=== PATIENT | male | born 1990 | race Caucasian/White ===

== ENCOUNTER 2016-10-05 17:21 | Emergency (ER) | payer SELFPAY ==
[~2016-10-05] VITALS: Ht 198.1 cm; Wt 129.3 kg
[~2016-10-05 17:21] MED LIST: ALBUTEROL0.09 MG/A2 IH; AMOXICILLIN500 M2 PO; AMOXIL500 MG PO; ATARAX,VISTARIL50 MG PO; BACTRIM DS 8001 TA1 PO; BENADRYL ALLERG25 M5 PO; CLARITIN10 MG PO; CLEOCIN150 MG PO; CLINDAMYCIN HC300 MG PO; CLINDAMYCIN150 MG PO; EES400 MG PO; HYDROCODONE BIT1 T11 PO; IBU800 MG PO; LOTRIMIN1% TP; MEDROL DOSEPAK4 MG PO; MOTRIN800 MG PO; Motrin,Rufen800 MG PO; NKHM; NORCO 10-325 T1 EACH PO; NORCO 5-325 TA1 EACH PO; NYSTATIN CREAM15 GM T; PENICILLIN VK500 MG PO; PENICILLIN-VK500 M1 PO; PHENERGAN25 M3 PO; PREDNISONE10 MG PO; Peridex 473 ML473 ML PO; TRAMADOL HCL50 MG PO; ULTRAM50 MG PO; VIBRAMYCIN100 MG PO; VISTARIL50 MG PO; VOLTAREN50 M1 PO; ZITHROMAX Z PA250 MG PO
[2016-10-05 17:25] VITALS: BP 133/69
== END 2016-10-05 17:50 | disposition home or self-care (01) ==
LOC: ED 17:21
DX: Z20.2 Contact with and (suspected) exposure to infections with a predominantly sexual mode of transmission (principal); R21 Rash and other nonspecific skin eruption; F17.200 Nicotine dependence, unspecified, uncomplicated; Z98.890 Other specified postprocedural states

== ENCOUNTER 2018-07-02 14:07 | Emergency (ER) | payer BC ==
[2018-07-02 14:08] VITALS: BP 134/71
[2018-07-02] MEDS ORDERED: AVPAK AZITHROM250 MG PO (15:57)
[2018-07-02] MEDS ORDERED: PREDNISONE50 MG PO (15:57)
[2018-07-02] MEDS ORDERED: PROAIR HFA8.5 GM INH (15:57)
== END 2018-07-02 16:01 | disposition home or self-care (01) ==
LOC: ED 14:07
DX: J20.9 Acute bronchitis, unspecified (principal); M25.562 Pain in left knee; W10.8XXA Fall (on) (from) other stairs and steps, initial encounter; Y93.89 Activity, other specified; Y92.89 Other specified places as the place of occurrence of the external cause; Y99.8 Other external cause status

== ENCOUNTER 2018-11-23 19:37 | Emergency (ER) | payer BC ==
[~2018-11-23] VITALS: Ht 198.1 cm; Wt 140.6 kg
[~2018-11-23 19:37] MED LIST changes: +AVPAK AZITHROM250 MG PO; +PREDNISONE50 MG PO; +PROAIR HFA8.5 GM INH
[2018-11-23 19:38] VITALS: BP 122/72
== END 2018-11-23 20:14 | disposition home or self-care (01) ==
LOC: ED 19:37
DX: S05.01XA Injury of conjunctiva and corneal abrasion without foreign body, right eye, initial encounter (principal); W50.0XXA Accidental hit or strike by another person, initial encounter; Y93.89 Activity, other specified; Y92.89 Other specified places as the place of occurrence of the external cause; Y99.8 Other external cause status

== ENCOUNTER 2019-08-07 21:41 | Emergency (ER) | payer SELFPAY ==
[~2019-08-07] VITALS: Ht 198.1 cm; Wt 131.5 kg
[2019-08-07 22:00] VITALS: BP 136/68
== END 2019-08-08 00:16 | disposition home or self-care (01) ==
LOC: ED 21:41
DX: S93.402A Sprain of unspecified ligament of left ankle, initial encounter (principal); W20.8XXA Other cause of strike by thrown, projected or falling object, initial encounter; Y93.89 Activity, other specified; Y92.89 Other specified places as the place of occurrence of the external cause; Y99.8 Other external cause status

== ENCOUNTER → 2021-03-24 | Outpatient (CLI) | payer OTHER | END | disposition home or self-care (01) | LOC: COVID19 18:28 | PROVIDERS: ATTEND Family Medicine | DX: U07.1 COVID-19 (principal) ==

== ENCOUNTER 2021-04-21 17:20 | Emergency (ER) | payer OTHER ==
[~2021-04-21] VITALS: Ht 198.1 cm; Wt 145.1 kg
[2021-04-21 18:46] VITALS: BP 133/81
[2021-04-21] MEDS ORDERED: NAPROXEN250 MG PO (20:10)
== END 2021-04-21 20:17 | disposition home or self-care (01) ==
LOC: ED 17:20
DX: S83.91XA Sprain of unspecified site of right knee, initial encounter (principal); W22.8XXA Striking against or struck by other objects, initial encounter; Y93.89 Activity, other specified; Y92.89 Other specified places as the place of occurrence of the external cause; Y99.8 Other external cause status

== ENCOUNTER 2021-07-17 00:22 | Emergency (ER) | payer SELFPAY ==
[~2021-07-17] VITALS: Ht 200.6 cm; Wt 136.1 kg
[~2021-07-17 00:22] MED LIST changes: +NAPROXEN250 MG PO
[2021-07-17 01:18] LABS: BASO % 0.3 % (0.0-1.0); EOS # 0.3 10*3/uL (0.0-0.4); EOS % 2.7 % (1.0-4.0); HEMATOCRIT 42.8 % (42.0-52.0); LYMPH % 15.9 % (27.0-41.0); MEAN CELL VOLUME 89.2 fl (80.0-94.0); MEAN CORPUSCULAR HGB 30.4 pg (27.0-31.0); MEAN CORPUSCULAR HGB CONC 34.1 g/dl (33.0-37.0); MEAN PLATELET VOLUME 10.7 fl (9.6-12.3); MONO # 0.9 10*3/uL (0.1-1.0); MONO % 7.4 % (3.0-9.0); NEUT # 9.2 10*3/uL (2.3-7.9); NEUT % 73.5 % (47.0-73.0); PLATELET COUNT AUTOMATED 281 10*3/uL (130-400); RED CELL DISTRI WIDTH 13.2 % (0-14.5); WHITE BLOOD COUNT 12.5 10*3/uL (4.8-10.8)
[2021-07-17 01:33] LABS: ALBUMIN 3.6 gm/dl (3.1-4.5); ALKALINE PHOSPHATASE 95 U/L (45-117); BUN 14 mg/dl (7-24); CHLORIDE 108 mmol/L (98-107); CREATININE 0.86 mg/dL (0.70-1.30); POTASSIUM 3.6 mmol/L (3.5-5.1); SGOT/AST 14 IU/L (3-35); SGPT/ALT 21 U/L (12-78); SODIUM 140 mmol/L (136-145); TOTAL PROTEIN 7.8 gm/dL (6.4-8.2)
[2021-07-17 02:39] LABS: BILIRUBIN Negative (Negative); BLOOD Negative (Negative); CLARITY Clear (Clear); COLOR Yellow (Yellow); GLUCOSE Negative (Negative); KETONE Negative (Negative); LEUKO ESTERASE Negative (Negative); NITRITE Negative (Negative); SPECIFIC GRAVITY >= 1.030 (1.001-1.030)
[2021-07-17 02:53] LABS: URINE AMPHETAMINES < 1000 (1000ng/ml); URINE BARBITURATES < 200 (200ng/ml); URINE BENZODIAZEPINES > 200 (200ng/ml); URINE CANNABINOIDS (THC) > 50 (50ng/ml); URINE COCAINE < 300 (300ng/ml); URINE METHADONE < 300 (300ng/ml); WBC 0-2 wbc/hpf (0-5)
[2021-07-17 02:57] LABS: URINE OPIATES < 300 (300ng/ml)
[2021-07-17 02:58] LABS: URINE PHENCYCLIDINE < 25 (25ng/ml)
[2021-07-17 03:26] VITALS: BP 132/84
== END 2021-07-17 06:59 | disposition left against medical advice (07) ==
LOC: ED 00:22
PROVIDERS: Emergency Medicine
DX: F19.239 Other psychoactive substance dependence with withdrawal, unspecified (principal); F17.200 Nicotine dependence, unspecified, uncomplicated

== ENCOUNTER 2021-12-22 09:53 | Emergency (ER) | payer SELFPAY ==
[2021-12-22 10:00] VITALS: BP 132/105
[2021-12-22] MEDS ORDERED: MEDROL DOSEPAK4 MG PO (10:43)
== END 2021-12-22 10:50 | disposition home or self-care (01) ==
LOC: ED 09:53
DX: L23.7 Allergic contact dermatitis due to plants, except food (principal)

== ENCOUNTER 2023-10-19 15:19 | Emergency (ER) | payer MEDICAID ==
[~2023-10-19] VITALS: Wt 113.4 kg
[2023-10-19] MEDS ORDERED: KLONOPIN1 M1 PO (15:38)
[2023-10-19 15:39] VITALS: BP 128/65
[2023-10-19] MEDS ORDERED: Tetracaine Hydrochloride 0.5% 4 ML BOT OPH ONE (15:45)
[2023-10-19] MEDS ORDERED: FLUORESCEIN SODIUM 1 MG STRIP OPH ONE (15:45)
[2023-10-19] MEDS ORDERED: IBUPROFEN600 MG PO ×2 (16:00→16:04)
[2023-10-19] MEDS ORDERED: TOBRAMYCIN5 ML OD ×2 (16:00→16:04)
[2023-10-19] MEDS ORDERED: HYDROCODONE-AC1 EAC1 PO (16:02)
[2023-10-19] MEDS ORDERED: Tdap Vaccine 0.5 ML SYR (Adult Vaccine) IM ONE (16:15)
== END 2023-10-19 16:32 | disposition home or self-care (01) ==
LOC: ED 15:19
DX: S05.02XA Injury of conjunctiva and corneal abrasion without foreign body, left eye, initial encounter (principal); Z98.890 Other specified postprocedural states; W22.8XXA Striking against or struck by other objects, initial encounter; Y93.89 Activity, other specified; Y92.89 Other specified places as the place of occurrence of the external cause; Y99.0 Civilian activity done for income or pay

== ENCOUNTER 2024-02-12 20:30 | Emergency (ER) | payer MEDICAID ==
[~2024-02-12 20:30] MED LIST changes: +HYDROCODONE-AC1 EAC1 PO; +IBUPROFEN600 MG PO; +KLONOPIN1 M1 PO; +TOBRAMYCIN5 ML OD
[2024-02-12] MEDS ORDERED: PREDNISONE20 M1 PO (20:44)
[2024-02-12 20:45] VITALS: BP 114/67
[2024-02-12] MEDS ORDERED: methylPREDNISolone sod succ 125 MG VIAL IM ONE (20:50)
== END 2024-02-12 21:03 | disposition home or self-care (01) ==
LOC: ED 20:30
DX: L25.9 Unspecified contact dermatitis, unspecified cause (principal); Z98.890 Other specified postprocedural states

== ENCOUNTER 2024-03-30 11:28 | Emergency (ER) | payer MEDICAID ==
[~2024-03-30] VITALS: Ht 198.1 cm; Wt 104.9 kg
[~2024-03-30 11:28] MED LIST changes: +PREDNISONE20 M1 PO
[2024-03-30 11:40] VITALS: BP 125/52
[2024-03-30] MEDS ORDERED: LORAZEPAM1 MG PO (11:41)
[2024-03-30] MEDS ORDERED: TRAZODONE100 MG PO (11:41)
[2024-03-30] MEDS ORDERED: Ondansetron Hydrochloride 4 MG/2 ML VIAL IV ONE (11:55)
[2024-03-30] MEDS ORDERED: MORPHINE Sulfate 2 MG/ML SYR IV ONE (11:55)
[2024-03-30] MEDS ORDERED: SODIUM CHLORIDE 0.9% 1,000 ML IV ONE (11:55)
[2024-03-30 12:26] LABS: BASO # 0.1 10*3/uL (0.0-0.1); BASO % 0.5 % (0.0-1.0); EOS # 0.4 10*3/uL (0.0-0.4); EOS % 4.1 % (1.0-4.0); HEMATOCRIT 39.6 % (42.0-52.0); LYMPH # 2.1 10*3/uL (1.3-4.4); LYMPH % 22.1 % (27.0-41.0); MEAN CELL VOLUME 97.5 fl (80.0-94.0); MEAN CORPUSCULAR HGB CONC 31.8 g/dl (33.0-37.0); MEAN PLATELET VOLUME 10.1 fl (9.6-12.3); MONO # 0.7 10*3/uL (0.1-1.0); MONO % 7.4 % (3.0-9.0); NEUT # 6.1 10*3/uL (2.3-7.9); NEUT % 65.6 % (47.0-73.0); PLATELET COUNT AUTOMATED 265 10*3/uL (130-400); RED BLOOD COUNT 4.06 10*6/uL (4.50-5.90); WHITE BLOOD COUNT 9.3 10*3/uL (4.8-10.8)
[2024-03-30 12:57] LABS: ALKALINE PHOSPHATASE 72 U/L (46-116); BUN 11 mg/dl (9-23); CHLORIDE 105 mmol/L (98-107); CPK 78 U/L (34-171); POTASSIUM 3.7 mmol/L (3.4-5.1); SGPT/ALT 12 U/L (5-49); TOTAL PROTEIN 7.3 gm/dL (6.0-8.0)
[2024-03-30] MEDS ORDERED: CYCLOBENZAPRINE10 MG PO (14:13)
[2024-03-30] MEDS ORDERED: LEVOFLOXACIN750 M2 PO (14:13)
[2024-03-30] MEDS ORDERED: MELOXICAM15 MG PO (14:13)
[2024-03-30] MEDS ORDERED: BENZONATATE100 M1 PO (14:13)
[2024-04-03] MEDS ORDERED: SEPTDS PO (09:46)
== END 2024-03-30 14:12 | disposition home or self-care (01) ==
LOC: ED 11:28
PROVIDERS: Emergency Medicine
DX: K40.90 Unilateral inguinal hernia, without obstruction or gangrene, not specified as recurrent (principal); J18.9 Pneumonia, unspecified organism; F41.9 Anxiety disorder, unspecified; F32.A Depression, unspecified; F17.290 Nicotine dependence, other tobacco product, uncomplicated; Z98.890 Other specified postprocedural states

== ENCOUNTER 2024-06-05 09:13 | Emergency (ER) | payer OTHER ==
[~2024-06-05] VITALS: Ht 198.1 cm; Wt 99.8 kg
[~2024-06-05 09:13] MED LIST changes: +BENZONATATE100 M1 PO; +CYCLOBENZAPRINE10 MG PO; +LEVOFLOXACIN750 M2 PO; +LORAZEPAM1 MG PO; +MELOXICAM15 MG PO; +SEPTDS PO; +TRAZODONE100 MG PO
[2024-06-05 09:20] VITALS: BP 131/79
[2024-06-05] MEDS ORDERED: SODIUM CHLORIDE 0.9% 500 ML IV ONE (09:35)
[2024-06-05] MEDS ORDERED: Ondansetron Hydrochloride 4 MG/2 ML VIAL IV ONE (09:35)
[2024-06-05] MEDS ORDERED: Pantoprazole Sodium 40 MG TAB PO ONE (09:40)
[2024-06-05 09:52] LABS: BASO % 0.4 % (0.0-1.0); EOS # 0.4 10*3/uL (0.0-0.4); EOS % 3.4 % (1.0-4.0); HEMATOCRIT 44.9 % (42.0-52.0); MEAN CELL VOLUME 95.1 fl (80.0-94.0); MEAN CORPUSCULAR HGB 30.5 pg (27.0-31.0); MEAN CORPUSCULAR HGB CONC 32.1 g/dl (33.0-37.0); MEAN PLATELET VOLUME 10.2 fl (9.6-12.3); MONO # 0.6 10*3/uL (0.1-1.0); MONO % 5.6 % (3.0-9.0); NEUT # 7.9 10*3/uL (2.3-7.9); NEUT % 75.8 % (47.0-73.0); PLATELET COUNT AUTOMATED 270 10*3/uL (130-400); RED BLOOD COUNT 4.72 10*6/uL (4.50-5.90); RED CELL DISTRI WIDTH 14.1 % (0-14.5); WHITE BLOOD COUNT 10.4 10*3/uL (4.8-10.8)
[2024-06-05] MEDS ORDERED: TRAZODONE150 MG PO (09:55)
[2024-06-05] MEDS ORDERED: HYDROmorphONE Hydrochloride 1 MG/ML SYR IV ONE (09:55)
[2024-06-05] MEDS ORDERED: ATIVAN1 MG PO (09:56)
[2024-06-05] MEDS ORDERED: IOHEXOL 300 MG/ML 100 ML VIAL IV ONE (10:00)
[2024-06-05 10:13] LABS: ALKALINE PHOSPHATASE 83 U/L (46-116); BUN 16 mg/dl (9-23); CHLORIDE 103 mmol/L (98-107); LIPASE 24 U/L (12-53); POTASSIUM 4.1 mmol/L (3.4-5.1); SGPT/ALT 17 U/L (5-49)
[2024-06-05] MEDS ORDERED: PRILOSEC20 M1 PO (12:16)
[2024-06-05] MEDS ORDERED: VIBRAMYCIN100 MG PO (12:16)
[2024-06-05] MEDS ORDERED: PERCOCET 5-3251 EACH PO (12:16)
[2024-06-05 12:31] LABS: BILIRUBIN Negative (Negative); BLOOD Negative (Negative); CLARITY Clear (Clear); COLOR Yellow (Yellow); GLUCOSE Negative (Negative); KETONE Negative (Negative); LEUKO ESTERASE Negative (Negative); NITRITE Negative (Negative); PH 5.5 (4.5-8.0); SPECIFIC GRAVITY >= 1.030 (1.001-1.030); UROBILINOGEN 0.2 E.U./dl (0.0-1.0)
== END 2024-06-05 12:44 | disposition home or self-care (01) ==
LOC: ED 09:13
DX: L92.9 Granulomatous disorder of the skin and subcutaneous tissue, unspecified (principal); K25.9 Gastric ulcer, unspecified as acute or chronic, without hemorrhage or perforation; F17.200 Nicotine dependence, unspecified, uncomplicated; Z79.899 Other long term (current) drug therapy; Z98.890 Other specified postprocedural states

== ENCOUNTER 2024-07-26 16:56 | Emergency (ER) | payer OTHER ==
[~2024-07-26] VITALS: Wt 102.1 kg
[~2024-07-26 16:56] MED LIST changes: +ATIVAN1 MG PO; +PERCOCET 5-3251 EACH PO; +PRILOSEC20 M1 PO; +TRAZODONE150 MG PO
[2024-07-26 17:09] VITALS: BP 123/46
[2024-07-26] MEDS ORDERED: diphenhydrAMINE hydrochloride 50 MG/ML VIAL IV ONE (17:20)
[2024-07-26] MEDS ORDERED: FAMOTIDINE 50 ML IV ONE (17:20)
[2024-07-26] MEDS ORDERED: SODIUM CHLORIDE 0.9% 1,000 ML IV ONE (17:20)
[2024-07-26] MEDS ORDERED: Metoclopramide Hydrochloride 10 MG/2 ML VIAL IV ONE (17:20)
[2024-07-26 17:30] LABS: BASO % 0.1 % (0.0-1.0); EOS # 0.1 10*3/uL (0.0-0.4); EOS % 2.1 % (1.0-4.0); HEMATOCRIT 44.2 % (42.0-52.0); MEAN CELL VOLUME 93.6 fl (80.0-94.0); MEAN CORPUSCULAR HGB 30.9 pg (27.0-31.0); MEAN PLATELET VOLUME 10.7 fl (9.6-12.3); MONO # 0.5 10*3/uL (0.1-1.0); MONO % 7.9 % (3.0-9.0); NEUT # 4.4 10*3/uL (2.3-7.9); NEUT % 65.2 % (47.0-73.0); PLATELET COUNT AUTOMATED 234 10*3/uL (130-400); RED BLOOD COUNT 4.72 10*6/uL (4.50-5.90); RED CELL DISTRI WIDTH 13.6 % (0-14.5); WHITE BLOOD COUNT 6.8 10*3/uL (4.8-10.8)
[2024-07-26 17:50] LABS: BUN 8 mg/dl (9-23); CHLORIDE 103 mmol/L (98-107)
[2024-07-26] MEDS ORDERED: REGLAN10 M1 PO (18:01)
== END 2024-07-26 18:06 | disposition home or self-care (01) ==
LOC: ED 16:56
PROVIDERS: Emergency Medicine
DX: R11.2 Nausea with vomiting, unspecified (principal); R19.7 Diarrhea, unspecified; F13.10 Sedative, hypnotic or anxiolytic abuse, uncomplicated; F17.200 Nicotine dependence, unspecified, uncomplicated; F11.10 Opioid abuse, uncomplicated; Z98.890 Other specified postprocedural states

== ENCOUNTER 2025-01-17 21:19 | Emergency (ER) | payer OTHER ==
[~2025-01-17] VITALS: Ht 198.1 cm; Wt 113.4 kg
[~2025-01-17 21:19] MED LIST changes: +REGLAN10 M1 PO
[2025-01-17 22:55] LABS: MEAN CELL VOLUME 97.0 fl (80.0-94.0); MEAN CORPUSCULAR HGB 32.0 pg (27.0-31.0); MEAN PLATELET VOLUME 10.2 fl (9.6-12.3); NUCLEATED RED BLOOD CELL 0.0 % (0.0-0.0); NUCLEATED RED BLOOD CELL 0.0 10*3/uL (0.0-0.0); PLATELET COUNT AUTOMATED 310 10*3/uL (130-400); RED CELL DISTRI WIDTH 13.7 % (0-14.5)
[2025-01-17 23:06] LABS: MANUAL DIFF REFLEX YES
[2025-01-17 23:18] LABS: BUN 10 mg/dl (9-23); SGPT/ALT 11 U/L (5-49)
[2025-01-17 23:25] LABS: PLATELET SUFFICIENCY NORMAL (NORMAL)
[2025-01-18] LABS: URINE AMPHETAMINES Negative (1000ng/ml); URINE BARBITURATES Negative (200ng/ml); URINE BENZODIAZEPINES Positive (200ng/ml); URINE CANNABINOIDS (THC) Positive (50ng/ml); URINE COCAINE Negative (300ng/ml); URINE METHADONE Negative (300ng/ml); URINE OPIATES Negative (300ng/ml); URINE PHENCYCLIDINE Negative (25ng/ml)
[2025-01-18 00:30] VITALS: BP 137/65
== END 2025-01-18 00:35 | disposition left against medical advice (07) ==
LOC: ED 21:19
PROVIDERS: Emergency Medicine
DX: T40.411A Poisoning by fentanyl or fentanyl analogs, accidental (unintentional), initial encounter (principal); R40.4 Transient alteration of awareness; R11.10 Vomiting, unspecified; F13.10 Sedative, hypnotic or anxiolytic abuse, uncomplicated; Z79.899 Other long term (current) drug therapy; Z98.890 Other specified postprocedural states; Z87.891 Personal history of nicotine dependence; Y92.89 Other specified places as the place of occurrence of the external cause